=== PATIENT | female | born 1990 | race Caucasian/White ===

== ENCOUNTER 2016-12-02 14:04 | Emergency (ER) | payer OTHER ==
[2016-12-02 14:15] VITALS: BP 129/79
--- NOTE | 2016-12-02 14:54 | ERNOTE ---
Dizziness ER Record Date of Service: 12/02/16 Presenting Symptoms: dizziness Time Seen by Provider: 12/02/16 14:40 Source: patient, family, RN notes reviewed Exam Limitations: no limitations Immunizations: IMMUNIZATION HX Immunizations Up to Date Yes History of Influenza Vaccine No Hx Pneumococcal Vaccination No Allergies/Adverse Reactions: Allergies Allergy/AdvReac Type Severity Reaction Status Date / Time azithromycin Allergy Mild hives, Verified 12/02/16 14:15 [From Zithromax Z-Nasim] blisters Penicillins Allergy Mild Hives, Verified 12/02/16 14:15 blisters Sulfa (Sulfonamide Allergy Mild Hives Verified 12/02/16 14:15 Antibiotics) latex AdvReac Mild rash Verified 12/02/16 14:15 Home Medications: HOME MEDICATIONS Vit No.124/Iron/FA [ Vitamin Tablet] 1 each PO DAILY 05/26/16 [ Last Taken Unknown] Meclizine HCl [Antivert] 25 mg PO Q6H PRN #20 tab 12/02/16 [Last Taken Unknown] Triamcinolone Acetonide [Kenalog in [place]] 1 appl DT BID 12/02/16 [Last Taken Unknown] - History of Present Illness Narrative: 25 y/o female ambulatory to the ED with her mother for dizziness. This has been bothering her for 2 weeks, but became so severe today that she nearly fell down. She was walking into her kitchen at the time. She also reports nausea and has had a couple episodes of vomiting over the past 2 weeks. She is currently 6 weeks . She also reports chronic nasal congestion due to seasonal allergies. She is not taking anything for this. She reports having a headache that began after the dizzy spell today. She took Tylenol without improvement. Timing and Duration: still present, better, intermittent Associated Symptoms: Present: nausea, headache, light headedness. Absent: hearing loss, ringing/roaring in ear, ear pain, vomiting, weakness, numbness, sweating, sense of confusion Sense of movement: Present: spinning, vague Fainted/near fainted while:: Present: standing Decreased ability to stand/walk:: Present: walks w/o assistance Usually:: Present: walks w/o assistance Modifying Factors - (Improves): Reports: nothing Modifying Factors - (Worsens): Reports: nothing Prior Treament: Denies: recently seen, similar symptoms before Review of Systems - Review of Systems Constitutional: Absent: fever, chills EYE: Absent: blurred vision, vision changes ENT: Present: nose congestion, nasal drainage. Absent: ear pain, sore throat Respiratory: Absent: shortness of breath, cough Cardiology: Absent: chest pain, palpitations Gastrointestinal/Abdominal: Present: See HPI. Absent: diarrhea, abdominal pain Genitourinary: Absent: dysuria, decreased urinary output Musculoskeletal: Present: no symptoms reported Skin: Absent: rash, lesions Neurological: Present: headache, dizziness/light-headedness Endocrine: Present: no symptoms reported Hematologic/Lymphatic: Present: no symptoms reported Psych: Present: no symptoms reported - Patient's Past Medical History Patient History - Medical: GERD, Migraines, Obesity Patient History - Cardiac/Respiratory: No pertinent hx Patient History - Cancer: No Hx of Cancer Patient History - Surgical Procedures: Cholecystectomy, Colonoscopy, , EGD, Other Patient History - Other: None LMP (females 10-50): LMP (Calendar): 10/21/16 - Social History Living Situations: significant other Abuse History: No History of abuse Psych History: Hx of Anxiety, Hx of Depression Smoking Status: Never smoker Have you smoked in the past 12 months: No Alcohol Use: none Drug Use: none - Immunizations Immunizations Up to Date: Yes Hx Pneumococcal Vaccination: No History of Influenza Vaccine: No Physical Exam - Physical Exam General Appearance: Present: wd/wn, alert, no apparent distress, obese Eye Exam: Normal inspection: bilateral, PERRL: bilateral Ears, Nose, Throat: Present: hearing grossly normal, nasal congestion, normal pharynx. Absent: abnormal TM (R), abnormal TM (L), sinus pain/drainage Neck: Present: normal inspection, nontender, supple Respiratory: Present: no respiratory distress, normal breath sounds, no accessory muscle use, lungs clear Cardiovascular/Chest: Present: regular rate, rhythm, no murmur, normal peripheral pulses Neurological Exam: Present: alert, oriented, normal mood/affect, no motor/ sensory deficits Skin Exam: Present: normal color, warm/dry ED Progress - Results and Orders Patient's Lab Results:: I have reviewed the patient's lab results. - Vital Signs Patient's Vital Signs:: I have reviewed the patient's vital signs. Vital Signs: Vital Signs 12/02/16 14:12 Temperature 36.6 C Pulse Rate 88 Respiratory 12 Rate Blood Pressure 129/79 O2 Sat by Pulse 99 Oximetry - Progress/Reassessment Chief Complaint: Dizziness Progress:: Unchanged Departure Clinical Impression: Dizziness, First trimester - Departure Disposition: Home Follow Up Needed Condition: Stable Instructions: Dizziness, [id number], First Trimester of Additional Instructions: Take Meclizine every 6 hours as needed if it helps See your OB as scheduled Referrals: Karin Good ARNP [Primary Care Provider] - Prescriptions: Meclizine HCl [Antivert] 25 mg PO Q6H PRN #20 tab PRN Reason: dizziness
[2016-12-02 15:03] LABS: Hematocrit 39.3 % (37.0-47.0); Hemoglobin 12.5 gm/dL (12.5-16.0); Mean Cell Volume 83.8 fl (78-100); Mean Corpuscular Hemoglobin 26.7 pg (27-31); Mean Corpuscular Hgb Conc 31.8 g/dl (32-36); Mean Platelet Volume 9.9 fl (6.0-9.5); Neutrophil # 6.9 K/mm3 (1.3-6.0); Neutrophil % 75.4 % (42-75.0); Platelet Count 332 K/mm3 (150-450); Red Blood Count 4.69 M/mm3 (4.2-5.4); Red Cell Distribution Width 14.7 % (11.5-14.0); White Blood Count 9.1 K/mm3 (4.0-10.5)
[2016-12-02 15:17] LABS: Albumin * 3.7 gm/dl (3.4-5.0); Anion Gap 14.1 mmol/L (6.8-13.8); BUN/Creatinine Ratio 23.7 (9.0-21.6); Bilirubin, Total 0.2 mg/dL (0.0-1.1); Ca. Corrected For Albumin 8.5 mg/dL (8.4-10.2); Calcium * 8.6 mg/dL (7.9-10.9); Carbon Dioxide 24.7 mmol/L (24-32.6); Potassium 3.8 mmol/L (3.4-4.6); Total Protein 8.3 gm/dL (6.2-8.2)
[2016-12-02 15:36] LABS: Urine Appearance Clear; Urine Bacteria None Seen; Urine Bilirubin Negative (NEGATIVE); Urine Blood Negative /ul (NEGATIVE); Urine Color Yellow; Urine Ketone Negative (NEGATIVE); Urine Nitrite Negative (NEGATIVE); Urine Protein Negative (NEGATIVE); Urine RBC None Seen /hpf (0-5); Urine Urobilinogen Normal (NORMAL); Urine WBC None Seen /hpf (0-5); Urine pH 5.5 pH (5.0-7.0)
[2016-12-02] MEDS ORDERED: MECLIZINE HCL 25 MG TABLET PO ONE (15:53)
[2016-12-02] MEDS ORDERED: MECLIZINE HCL 25 MG TABLET ONE (15:55)
== END 2016-12-02 16:02 | disposition home or self-care (01) ==
LOC: ER 14:04
DX: R42 Dizziness and giddiness (principal); Z33.1 Pregnant state, incidental; Z3A.01 Less than 8 weeks gestation of pregnancy